=== PATIENT | female | born 1975 | race Caucasian/White ===

== ENCOUNTER → 2019-11-18 | Outpatient (CLI) | payer SELFPAY ==
[~2019-11-18] MED LIST: ANAPROX DS550 MG PO; ATIVAN0.5 MG PO; BACTRIM DS 8001 TA1 PO; CIPRO500 MG PO; DAYPRO600 M1 PO; FIORICET 325 MG1 TAB PO; HYDROCODONE BIT1 T11 PO; MEDROL DOSEPAK4 MG PO; MOTRIN600 MG PO; NKHM; ROBAXIN750 MG PO; SKELAXIN800 MG PO; TRAMADOL HCL50 MG PO; TYLENOL W/CODEI1 TA2 PO; VICODIN 500 MG-1 TAB PO; VICODIN ES 7501 TAB PO; ZANTAC150 MG PO; ZOFRAN ODT4 MG SL
== END | disposition home or self-care (01) ==
LOC: COVID19 11:19
DX: U07.1 COVID-19 (principal)